=== PATIENT | female | born 1980 | race Two or more races ===

== ENCOUNTER 2024-08-16 20:32 | Emergency (ER) | payer OTHER ==
[~2024-08-16] VITALS: Ht 167.6 cm; Wt 68.4 kg
[2024-08-16] MEDS ORDERED: HYDROcodone-ACET 10/325MG TAB PO ONE (20:45)
[2024-08-16 21:33] LABS: Urine Bacteria None Seen /hpf (None Seen); Urine WBC None Seen /hpf (0 - 5)
[2024-08-16 21:34] LABS: Basophils # (auto) 0.1 10 ^3/uL (0-0.2); Basophils % (auto) 1.4 % (0.0-2.0); Eosinophils # (auto) 0.1 10 ^3/uL (0-0.8); Eosinophils % (auto) 1.8 % (0.0-7.0); Hematocrit 38.7 % (36.0-46.0); Lymphocytes # (auto) 2.1 10 ^3/uL (0.4-5.4); Lymphocytes % (auto) 25.5 % (10.0-50.0); Mean Corpuscular Hemoglobin 27.4 pg (28.0-32.0); Mean Corpuscular Hgb Conc. 33.5 g/dL (32.0-36.0); Mean Corpuscular Volume 81.6 fL (80.0-100.0); Monocytes # (auto) 0.9 10 ^3/uL (0-1.3); Monocytes % (auto) 10.5 % (0.0-12.0); Neutrophils % (auto) 60.8 % (37.0-80.0); Platelet Count (auto) 352 10^3/uL (140-450); Red Blood Cells 4.75 10^6/uL (4.0-5.20); Red Cell Distribution Width 14.6 % (11.8-14.3); White Blood Cell 8.2 10^3/uL (4.4-10.8)
[2024-08-16 21:39] LABS: Chloride 109 mmol/L (98-107); Potassium 3.6 mmol/L (3.5-5.1); Sodium 140 mmol/L (136-145)
[2024-08-16 21:40] LABS: Anion Gap 6 (5-15); Calcium 9.4 mg/dL (8.7-10.4); Carbon Dioxide 25 mmol/L (20-31)
[2024-08-16 21:45] LABS: BUN/Creatinine Ratio 12.1 (10.0-20.0); Blood Urea Nitrogen 8 mg/dL (9-23); Glucose 100 mg/dL (74-106)
[2024-08-16 21:59] LABS: Urine Blood Negative /uL (Negative); Urine Clarity Clear (Clear); Urine Color Light-Yellow (Yellow); Urine Protein, UAD Negative (Negative); Urine Specific Gravity 1.015 (1.001-1.035); Urine Urobilinogen Normal (Negative); Urine pH 7.5 (5.0-9.0)
[2024-08-16 22:30] VITALS: BP 135/84; TEMP 98
[2024-08-16] MEDS ORDERED: ZOFR4T PO (22:39)
[2024-08-16] MEDS ORDERED: HYDR-4902 PO (22:39)
[2024-08-16 22:57] VITALS: PULSE 70; RESP 20; O2SAT 100
[2024-08-16] MEDS: DexAMETHasone SOD PHOS 10MG/1ML VIAL INJ IM ONE (23:12)
[2024-08-16] MEDS: ONDANSETRON ODT 4 MG TAB PO ONE (23:13)
[2024-08-16] MEDS: ACETAMINOPHEN 500 MG TAB PO ONE (23:13)
== END 2024-08-17 00:12 | disposition home or self-care (01) ==
LOC: ER 20:32
DX: R51.9 Headache, unspecified (principal); R20.0 Anesthesia of skin; I10 Essential (primary) hypertension
CPT/HCPCS: 36415; 70450; 80048; 81001; 82962; 85025; 93005; 96372; 99285; J1100; Q0162